=== PATIENT | female | born 1970 | race Caucasian/White ===

== ENCOUNTER → 2023-03-23 | Outpatient (CLI) | payer SELFPAY ==
--- NOTE | 2023-03-23 09:52 | RAD_ITS ---
STUDY: X-RAY - PELVIS AND BILATERAL HIPS REASON FOR EXAM: Female, 53 years old. Pain. TECHNIQUE: AP view of the pelvis.? 2 views of the right hip, and 2 views of the left hip were obtained. COMPARISON: None. FINDINGS: There is a non-specific bowel gas pattern. Normal visualized soft tissue structures. Osteopenia. Normal bilateral iliac wings, sacroiliac joints and visualized sacrum. Normal bilateral superior and inferior pubic rami. Normal pubic symphysis. Normal bilateral ischial tuberosities. Severe arthrosis of both hips with complete loss of articular cartilage, subchondral sclerosis and marked subchondral cyst formation. RAD/Hips B/L min 2 views w/ Pelvis IMPRESSION: Osteopenia with severe osteoarthritic changes of both hips as described. Electronically Signed: Inderjit Bhatka MD at 13:20 EST ,
--- NOTE | 2023-03-23 10:00 | RAD_ITS ---
STUDY: X-RAY - LUMBAR SPINE REASON FOR EXAM: Female, 53 years old. Radiculopathy. TECHNIQUE: 3 view(s) of the lumbar spine were obtained. COMPARISON: None FINDINGS: Normal lumbar lordosis. No scoliosis. Normal alignment of the vertebral bodies. Spina bifida occulta at S1. Mild diffuse lower thoracic and lumbosacral facet sclerosis. Intervertebral disc space narrowing at L5-S1 with small osteophyte formation. Normal soft tissues. RAD/Lumbar Spine 2 or 3 Views IMPRESSION: Lumbosacral spondylosis most marked at L5-S1. Electronically Signed: Inderjit Bhakta MD at 13:33 EST ,
== END | disposition home or self-care (01) ==
DX: M16.0 Bilateral primary osteoarthritis of hip (principal); M46.1 Sacroiliitis, not elsewhere classified; M25.551 Pain in right hip; M54.16 Radiculopathy, lumbar region
CPT/HCPCS: 72100; 73521